=== PATIENT | male | born 1950 | race Caucasian/White ===

== ENCOUNTER → 2024-09-29 | Outpatient (CLI) | payer MEDICARE, MEDICAID, SELFPAY ==
[2024-09-29 10:19] LABS: Basophils # (Auto) 0.1 Thou/mm3 (0.0-0.2); Basophils % (Auto) 1 % (0-2.5); Eosinophils # (Auto) 0.5 Thou/mm3 (0.0-0.5); Eosinophils % (Auto) 7 % (0-10); Hematocrit 39.9 % (41.0-53.0); Hemoglobin 12.4 g/dL (13.5-16.0); Immature Granulocytes % (Auto) 0 % (0-0); Immature Granulocytes Auto 0.01 Thou/mm3 (0.00-0.00); Lymphocytes # (Auto) 1.8 Thou/mm3 (1.0-4.8); Lymphocytes % (Auto) 24 % (10-50); Mean Corpuscular HGB Conc 31.1 g/dl (31.0-37.0); Mean Corpuscular Hemoglobin 27.3 pg (25.0-35.0); Mean Corpuscular Volume 88 fL (80-100); Monocytes # (Auto) 0.7 Thou/mm3 (0.0-0.8); Monocytes % (Auto) 10 % (0-12); Neutrophils # (Auto) 4.2 Thou/mm3 (1.8-7.7); Neutrophils % (Auto) 58 % (37-80); Nucleated Red Blood Cell % 0 /100 WBC (0); Platelet Count 261 Thou/mm3 (140-440); RDW Standard Deviation 58.4 fL (35.1-43.9); Red Blood Count 4.54 Miln/mm3 (4.50-5.90); White Blood Count 7.3 Thou/mm3 (3.8-10.6)
[2024-09-29 10:36] LABS: Alanine Aminotransferase 48 U/L (10-49); Albumin, Serum 3.7 gm/dL (3.4-4.8); Alkaline Phosphatase 278 U/L (46-116); Anion Gap 9 (7-16); Aspartate Amino Transferase 29 U/L (0-34); BUN/Creatinine Ratio 9 Ratio (12-20); Bilirubin,Direct 0.2 mg/dL (0.0-0.3); Bilirubin,Total 0.5 mg/dL (0.3-1.2); Blood Urea Nitrogen 51 mg/dL (9-23); Calcium 9.4 mg/dL (8.3-10.6); Carbon Dioxide 31.1 mMol/L (20.0-31.0); Cardiac Risk Estimate 2.6 RATIO (4.0-6.7); Chloride 90 mMol/L (98-107); Cholesterol 114 mg/dL (132-200); Glucose 114 mg/dL (74-106); HDL Cholesterol 44 mg/dL (40-60); LDL Cholesterol,Calculated 56 mg/dL (0-130); Osmolality,Calculated 275 (275-295); Phosphorous 3.9 mg/dL (2.4-5.1); Potassium 4.2 mMol/L (3.4-5.1); Sodium 130 mMol/L (136-145); Total Protein 8.8 gm/dL (5.7-8.2); Triglycerides 69 mg/dL (30-150); eGFR 9 See Note
[2024-09-29 11:54] LABS: B-Type Natriuretic Peptide 1108 pg/mL (0-100)
[2024-10-05 06:51] LABS: Direct LDL* 49 mg/dL (<100)
== END | disposition home or self-care (01) ==
PROVIDERS: PCP Physician Assistant; Referring Provider Physician Assistant; Visit Provider Internal Medicine Cardiovascular Disease
DX: E78.5 Hyperlipidemia, unspecified (principal); I11.0 Hypertensive heart disease with heart failure; I50.9 Heart failure, unspecified
CPT/HCPCS: 36415; 80048; 80061; 80076; 83721; 83880; 84100; 85025

== ENCOUNTER → 2024-09-30 | Outpatient (CLI) | payer MEDICARE, MEDICAID, SELFPAY ==
--- NOTE | 2024-09-30 15:43 | XR_ITS ---
Examination: PA lateral chest 2 views TECHNIQUE: Upright PA lateral chest 2 views Exam date and time: September 30, 2024 1613 hours Comparison September 05, 2021 INDICATIONS: Coughing shortness of breath beginning 3 weeks ago. FINDINGS: Mild prominence left ventricle CABG Unipolar ventricular lead satisfactory position Mild to moderate vascular congestion Diffuse opacity left lung consistent with pneumonia and layering left pleural fluid CABG IMPRESSION: Diffuse opacity left lung consistent with pneumonia and significant layered left pleural fluid
== END | disposition home or self-care (01) ==
PROVIDERS: PCP Internal Medicine Cardiovascular Disease; Referring Provider Physician Assistant; Visit Provider Physician Assistant
DX: R91.8 Other nonspecific abnormal finding of lung field (principal)
CPT/HCPCS: 71046

== ENCOUNTER 2024-11-06 17:48 | Emergency (ER) | payer MEDICARE, MEDICAID, SELFPAY ==
[2024-11-06 17:50] VITALS: BP 170/73; PULSE 73; RESP 19; TEMP 37.1; O2SAT 97
--- NOTE | 2024-11-06 18:10 | PC.NURSE ---
PER DAUGHTER AT BEDSIDE PT WENT FOR DIALYSIS THIS MORNING, CAME HOME, FISTULA WAS BLEEDING, PT WENT BACK TO DIALYSIS TO GET BLEEDING UNDER CONTROL, THEN WENT BACK HOME. ST HOME PT BEGAN BLEEDING AGAIN SO DAUGHTER BROUGHT HIM IN TO ED. DAUGHTER STATES LAST TIME THIS HAPPENED, PT ENDED UP NEEDING 3 BAGS OF BLOOD. CURRENTLY BLEEDING IS CONTROLLED WITH A SINGLE BAND-ADIE. VSS ON TELE, DENIES ANY PAIN OR DISCOMFORT, JUST SOME WEAKNESS. DAUGHTER REMAINS AT BEDSIDE ATTENTIVE TO PT, CALL MANNING IN REACH, AWAITING PROVIDER ASSESSMENT.
--- NOTE | 2024-11-06 18:32 | EDNOTE_ITS ---
ED Extremity Problem RME/HPI General Chief complaint: Extremity Problem,Nontraumatic Stated complaint: FISTULA BLEEDING LEFT ARM Time Seen by Provider: 11/06/24 18:25 Arrival date/time: 11/06/24 17:48 RME / HPI RME / HPI Narrative: Dr. Grace?s Main ED Evaluation: 73yo male accompanied by his daughter presents to the ED for a chief complaint of bleeding from his fistula site. Daughter states the patient had dialysis this morning, reporting he started bleeding from his fistula site after. She states the bleeding stopped, but restarted again tonight, so she brought him in for evaluation. She states this usually happens after the patient has dialysis. Patient denies any dizziness, lightheadedness or any other associated symptoms. Patient has dialysis M/W/F, and on a 4th day as needed. [employer] is Dr. [place]. He is not on any blood thinners. His last blood transfusion was in July of 2024 per the daughter. Related Data Home Medications ?Medication ?Instructions ?Recorded ?Confirmed atorvastatin 20 mg tablet 40 mg PO QDAY 12/06/17 11/08/23 amiodarone 200 mg tablet 200 mg PO QDAY 04/11/21 11/08/23 carvedilol 3.125 mg tablet 3.125 mg PO BID 04/11/21 11/08/23 furosemide 40 mg tablet 40 mg PO BID 04/11/21 11/08/23 ascorbic acid (vitamin C) 250 mg 250 mg PO BID 10/08/22 11/08/23 tablet megestrol 40 mg tablet 40 mg PO BID 10/08/22 11/08/23 insulin glargine 100 unit/mL (3 10 unit subcut QDAY 04/03/23 11/08/23 mL) subcutaneous pen (Basaglar KwikPen U-100 Insulin) vitamin B complex-vitamin C-folic 1 tab PO QDAY 04/03/23 11/08/23 acid 0.8 mg tablet (Lisette-Juventino) magnesium oxide 400 mg PO QDAY 10/17/23 11/08/23 tamsulosin 0.4 mg capsule 0.4 mg PO QHS 11/08/23 11/08/23 Allergies Allergy/AdvReac Type Severity Reaction Status Date / Time adhesive tape Allergy Severe Blister Verified 11/06/24 17:52 Review of Systems Review of Systems Systems Reviewed: All systems reviewed, normal except as documented Narrative Review of Systems: Gen: No fever, no chills, no weight loss, + bleeding at fistula site EYES: No discharge, no visual changes, no pain HEENT: No ear pain, no congestion, no sore throat PULM: No shortness of breath, no cough, no congestion CV: No chest pain, no dyspnea on exertion, no palpitations GI: No nausea, no vomiting, no diarrhea, no pain, no constipation : No frequency, no urgency, no dysuria Musc/skel: No joint pain, no back pain Skin: No rash. Warm and dry. Psyc: No hallucinations, no depression Heme/Lymph: No easy bleeding or bruising tendencies Neuro: No weakness, no headache Past Medical History Past Medical History NEUROLOGIC: Negative Neurological Disorders, Cerebrovascular Accident, Transient Ischemic Attacks (TIA), Dementia, Alzheimer's Disease, Parkinson's Disease, Brain Tumor, Meningitis, Seizures, Epilepsy, Multiple Sclerosis, Cerebral Palsy, Amyotrophic Lateral Sclerosis (ALS/Danielle Gehrig's), Guillain-Lovilia Syndrome, Spina Bifida, Paralysis, Peripheral Neuropathy, Amaya's Palsy, Subdural Hematoma, Migraine, Head Trauma, Spinal Cord Injury or Traumatic Brain Injury CARDIAC: Positive Cardiac Disorders (IA,quadruple bypass and pacemaker, valve re pair.), Myocardial Infarction, Cardiac Arrhythmia, Angina, Coronary Artery Disease, Hypercholesterolemia, Valvular Heart Disease, Edema and Hypertension; Negative Atrial Fibrillation, Heart Murmur, Atherosclerotic Heart Disease, Peripheral Vascular Disease, Aneurysm, Congestive Heart Failure, Congenital Heart Disease, Rheumatic Fever, Cardiomyopathy, Pericarditis, Cellulitis, Deep Vein Thrombosis or Varicose Veins RESPIRATORY: Negative Chronic Obstructive Pulmonary Disease (COPD), Asthma, Bronchitis, Emphysema, Pneumonia, Pulmonary Fibrosis, Cystic Fibrosis, Tuberculosis, Pulmonary Embolism, Pulmonary Edema or Sleep Apnea GASTROINTESTINAL: Positive Gastrointestinal Disorders and Gastrointestinal Bleed (UNKNOWN SOURCE); Negative Hepatitis, Cirrhosis, Pancreatitis, Celiac Disease, Gall Bladder Disease, Esophageal Varices, Mcgarry's Esophagus, Colitis, Ulcerative Colitis, Diverticulitis, Diverticulosis, Ulcer, Colorectal Cancer, Irritable Bowel, Crohn's Disease, Obstructive Bowel, Hiatal Hernia, Hemorrhoids, Gastroesophageal Reflux Disease or Obesity GENITOURINARY: Positive Genitourinary Disorders, Renal Disease (renal failure), Dialysis and Benign Prostatic Hyperplasia; Negative Polycystic Kidney Disease, Neurogenic Bladder, Inguinal Hernia or Prostate Cancer REPRODUCTIVE: Negative Fibroids or Testicular Cancer MUSCULOSKELETAL: Negative Musculoskeletal Disorders, Muscular Dystrophy, Myasthenia Gravis, Marfan's Syndrome, Bone Cancer, Arthritis, Rheumatoid Arthritis, Osteoporosis, Degenerative Disk Disease, Gout, Scoliosis, Carpal Tunnel Syndrome, Fibromyalgia, Fractures, Degenerative Joint Disease, Osteomyelitis or Poliovirus ENT: Positive Cataracts; Negative Glaucoma, Blind, Retinal Detachment, Macular Degeneration, Ear Infection, Deafness, Head Trauma or Eye Prosthesis ENDOCRINE: Positive Endocrine Disorders (PT HAS HELING AV FISTULA FOR HD ON LEFT ARM AND PERMCATH.) and Diabetes Mellitus Type 2; Negative Diabetes Mellitus Type 1, Hypoglycemia, Triny's Syndrome, Naranjito's Disease, Hyperthyroidism, Hypothyroidism, Parathyroid Disease, Pituitary Disease, Systemic Lupus Erythematosus, Syndrome of Inappropriate Antidiuretic Hormone (SIADH), Adrenal Disease or Graves' Disease HEMATOLOGIC: Positive Blood Disorders and Anemia; Negative Leukemia, Hemophilia, Thalassemia, Sickle Cell Disease or Clotting Problems PSYCHO/SOCIAL: Positive Depression; Negative Psychiatric Problems, Schizophrenia, Recreational Drug Use, Bipolar Disorder, Anxiety, Behavior Problems, Self-Mutilation, Attention Deficit Disorder, Attention Deficit Hyperactivity Disorder, Depression, Post Traumatic Stress Disorder or Eating Disorder OTHER HISTORY: Positive Hospitalization, Shingles and Blood Transfusions ([id number] FOR 6 WEEKS.); Negative Autoimmune Disease, Down Syndrome, Autism, Developmental Delay, Falls, Blood Transfusion Reaction, Anesthesia Reactions, Organ Transplant, Chemotherapy, Radiation Therapy, Hyperbaric Therapy, MRSA, VRSA, Vancomycin- Resistant Enterococci, Human Immunodeficiency Virus (HIV), Chicken Pox, Measles, Mumps, Rubella (Setswana Measles), Pertussis, Clostridium Difficile, Cancer, Colorectal Cancer, Lung Cancer, Prostate Cancer or Testicular Cancer Family History FAMILY HISTORY: Positive Family Cardiac Disorders and Family Cancer; Negative Family Psychiatric Problems, Family Respiratory Disorders, Family Niesha rointestinal Problems, Family Surgery or Family Anesthesia Reaction Surgical History SURGICAL: Positive Open Heart Surgery, Coronary Artery Bypass Graft, Valve Replacement, Cardiac Catheterization, Pacemaker, Angiogram, Auto Implanted Cardiovert Defib, Ear Surgery and Eye Surgery (CATARACTS BILATERAL REMOVED); Negative Cardiac Surgery, Vascular Surgery, Coronary Stent, Carotid Endarterectomy, Endocrine Surgery, Thyroidectomy, Tympanostomy Tube, Nose Surgery, Oral Surgery, Tonsillectomy, Adenoidectomy, Cochlear Implant, Corneal Transplant, Throat Surgery, Abdominal Surgery, Tracheostomy, Gastric Bypass Surgery, Gastrostomy, Bowel Surgery, Nephrectomy, Transurethral Resection, Joint Replacement, Amputation, Open Reduction Internal Fixation, Arthroscopy, Neurologic Surgery, Brain Shunt, Vasectomy or Organ Transplant Social History SMOKING STATUS: Never smoker ED Exam Narrative Physical exam: GENERAL APPEARANCE: AxOx4, generally well-appearing, no acute distress. HEENT: NC, AT. MMM. EOMI, clear conjunctiva, oropharynx clear. NECK: Supple without lymphadenopathy. No stiffness or restricted ROM. HEART: Normal rate and regular rhythm, normal S1/S1, no m/r/g LUNGS: CTAB, moving air well. No crackles or wheezes are heard. ABDOMEN: Soft, nontender, nondistended with good bowel sounds heard. BACK: No midline C/T/L spine pain or deformity, No CVAT, no obvious deformity. EXTREMITIES: Without cyanosis, clubbing or edema. Has dry blood over the left up per arm with bandages in place, no active bleeding. MUSCULOSKELETAL: FROM of all major joints, no chest tenderness NEUROLOGICAL: Grossly nonfocal. Alert and oriented, moving all 4 extremities. CN not formally tested but appear grossly intact. Skin: Warm and dry without any rash. Course Course Course Narrative: 2117: Discussed results with the patient and his daughter at bedside. Patient is stable to be discharged home. They are agreeable to continue on with the patient's regular dialysis schedule. Quality Measures none Orders Category Date Time Status CBC Stat Lab 11/06/24 18:45 Completed Hemoglobin and Hematocrit Stat Lab 11/06/24 20:29 Completed Vital Signs Vital signs: Vital Signs Temperature 98.8 F 11/06/24 17:50 Pulse Rate 73 11/06/24 17:50 Respiratory Rate 19 11/06/24 17:50 Blood Pressure 170/73 H 11/06/24 17:50 Pulse Oximetry (%) 97 11/06/24 17:50 Oxygen Delivery Method Room Air 11/06/24 17:50 Pulse ox is 97% on room air, which is normal according to my interpretation. Extremity Problem MDM Narrative MDM Narrative:: Scribe Attestation: 11/06/24 Diana Lainez am scribing for and in the presence of Dr. Grace. 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 Medications / Prescriptions Medications or Prescriptions considered but not ordered:: none Medication administrations:: none Consultations Consultation(s) initiated? (list below): No Diagnosis Extremity Problem Differential Diagnosis: other (chronic anemia, anemia with blood loss, ESRD, fistula malfunction) Most likely diagnosis given after review of the tests above:: chronic anemia, AV fistula malfunction Admission Indicated Admission indicated?: not indicated Explain why admission is indicated or not indicated:: Admission criteria not met. HnH remained stable. Admission Request Was there a request for admission?: No Disposition Plan Disposition Plan: Discharge Discharge Attestation Discharge Attestation: The patient and all family members were given an opportunity to ask questions and understood the discharge instructions. Discharge instructions specifically effects, indications for sooner follow up or return to the emergency department, and the expected course of current diagnosis. Patient condition: Stable Discharge Plan Plan Patient Disposition: HOME (Self Care) Prescriptions/Referrals Prescriptions/Med Rec: No Action atorvastatin 20 mg tablet 40 mg PO QDAY carvedilol 3.125 mg tablet 3.125 mg PO BID Rx Instructions: must administer with a meal/food amiodarone 200 mg tablet 200 mg PO QDAY furosemide 40 mg tablet 40 mg PO BID ascorbic acid (vitamin C) 250 mg tablet 250 mg PO BID megestrol 40 mg tablet 40 mg PO BID tamsulosin 0.4 mg capsule 0.4 mg PO QHS Lisette-Juventino 0.8 mg Tablet 1 tab PO QDAY insulin glargine [Basaglar KwikPen U-100 Insulin] 100 unit/mL (3 mL) Insulin Pen 10 unit SUBCUT QDAY magnesium oxide 400 mg magnesium Capsule 400 mg PO QDAY Referrals: Kaylan Peck PA-C [Primary Care Provider] - In 1 week Problem List Clinical Impression: Dialysis AV fistula malfunction, Anemia in chronic kidney disease (CKD) Patient/Caregiver Discharge Instructions Education Materials: ED Anemia Type Not Specified, ED Chronic Kidney Disease (CKD) Additional Instructions: You can follow-up with your normal dialysis schedule. Feel free to return to ER sooner if symptoms worsen or for any new or concerning issues. Print Language: Korean Stand Alone Forms: [facility] Info., Patient Portal Info Letter
[2024-11-06 18:53] LABS: Basophils # (Auto) 0.1 Thou/mm3 (0.0-0.2); Basophils % (Auto) 1 % (0-2.5); Eosinophils # (Auto) 0.4 Thou/mm3 (0.0-0.5); Eosinophils % (Auto) 5 % (0-10); Hematocrit 33.3 % (41.0-53.0); Hemoglobin 10.5 g/dL (13.5-16.0); Immature Granulocytes % (Auto) 0 % (0-0); Immature Granulocytes Auto 0.02 Thou/mm3 (0.00-0.00); Lymphocytes # (Auto) 1.7 Thou/mm3 (1.0-4.8); Lymphocytes % (Auto) 21 % (10-50); Mean Corpuscular HGB Conc 31.5 g/dl (31.0-37.0); Mean Corpuscular Hemoglobin 28.5 pg (25.0-35.0); Mean Corpuscular Volume 90 fL (80-100); Monocytes % (Auto) 13 % (0-12); Neutrophils # (Auto) 4.9 Thou/mm3 (1.8-7.7); Neutrophils % (Auto) 61 % (37-80); Nucleated Red Blood Cell % 0 /100 WBC (0); Platelet Count 299 Thou/mm3 (140-440); RDW Standard Deviation 61.7 fL (35.1-43.9); Red Blood Count 3.69 Miln/mm3 (4.50-5.90)
[2024-11-06 19:25] VITALS: BP 137/77; PULSE 70; RESP 18; TEMP 36.8; O2SAT 95
[2024-11-06 21:01] LABS: Hematocrit 33.9 % (41.0-53.0); Hemoglobin 10.8 g/dL (13.5-16.0)
== END 2024-11-06 21:33 | disposition home or self-care (01) ==
PROVIDERS: Emergency Provider Emergency Medicine; PCP Specialist
DX: T82.838A Hemorrhage due to vascular prosthetic devices, implants and grafts, initial encounter (principal); I13.2 Hypertensive heart and chronic kidney disease with heart failure and with stage 5 chronic kidney disease, or end stage renal disease; N18.6 End stage renal disease; E11.22 Type 2 diabetes mellitus with diabetic chronic kidney disease; D63.1 Anemia in chronic kidney disease; Y83.2 Surgical operation with anastomosis, bypass or graft as the cause of abnormal reaction of the patient, or of later complication, without mention of misadventure at the time of the procedure; Z79.4 Long term (current) use of insulin
CPT/HCPCS: 36415; 85014; 85018; 85025; 99283

== ENCOUNTER → 2024-11-09 | Outpatient (BNVA) | payer MEDICARE, MEDICAID, SELFPAY | END | disposition home or self-care (01) | PROVIDERS: PCP Physician Assistant; Referring Provider Physician Assistant; Visit Provider Urology | DX: N40.0 Benign prostatic hyperplasia without lower urinary tract symptoms (principal); I12.0 Hypertensive chronic kidney disease with stage 5 chronic kidney disease or end stage renal disease; E11.22 Type 2 diabetes mellitus with diabetic chronic kidney disease; N18.6 End stage renal disease; I25.10 Atherosclerotic heart disease of native coronary artery without angina pectoris | CPT/HCPCS: 81003; 99212; G0463 ==

== ENCOUNTER → 2025-01-15 | Outpatient (CLI) | payer MEDICARE, MEDICAID, SELFPAY ==
[2025-01-15 15:24] LABS: Basophils # (Auto) 0.1 Thou/mm3 (0.0-0.2); Basophils % (Auto) 1 % (0-2.5); Eosinophils # (Auto) 0.2 Thou/mm3 (0.0-0.5); Eosinophils % (Auto) 3 % (0-10); Hematocrit 34.8 % (41.0-53.0); Hemoglobin 10.7 g/dL (13.5-16.0); Immature Granulocytes % (Auto) 0 % (0-0); Immature Granulocytes Auto 0.02 Thou/mm3 (0.00-0.00); Lymphocytes # (Auto) 1.5 Thou/mm3 (1.0-4.8); Lymphocytes % (Auto) 21 % (10-50); Mean Corpuscular HGB Conc 30.7 g/dl (31.0-37.0); Mean Corpuscular Hemoglobin 29.1 pg (25.0-35.0); Mean Corpuscular Volume 95 fL (80-100); Monocytes # (Auto) 0.8 Thou/mm3 (0.0-0.8); Monocytes % (Auto) 12 % (0-12); Neutrophils # (Auto) 4.5 Thou/mm3 (1.8-7.7); Neutrophils % (Auto) 64 % (37-80); Nucleated Red Blood Cell % 0 /100 WBC (0); Platelet Count 381 Thou/mm3 (140-440); RDW Standard Deviation 60.4 fL (35.1-43.9); Red Blood Count 3.68 Miln/mm3 (4.50-5.90); White Blood Count 7.1 Thou/mm3 (3.8-10.6)
[2025-01-15 15:29] LABS: INR 1.1 (0.9-1.3); Partial Thromboplastin Time 33.4 Seconds (22.0-36.0); Prothrombin Time 11.9 Seconds (9.0-12.2)
== END | disposition home or self-care (01) ==
PROVIDERS: PCP Physician Assistant; Referring Provider Physician Assistant; Visit Provider Physician Assistant
DX: J90 Pleural effusion, not elsewhere classified (principal)
CPT/HCPCS: 36415; 85025; 85610; 85730

== ENCOUNTER → 2025-01-19 | Outpatient (CLI) | payer MEDICARE, MEDICAID, SELFPAY ==
--- NOTE | 2025-01-19 11:00 | XR_ITS ---
Examination: Ultrasound right hemithorax Ultrasound left hemithorax Exam date and time: 16/03/2025 1145 hours INDICATIONS: Difficulty breathing this week TECHNIQUE: Grayscale sonographic images right and left hemithoraces FINDINGS: Minimal bilateral pleural fluid IMPRESSION: Minimal bilateral pleural fluid
== END | disposition home or self-care (01) ==
PROVIDERS: PCP Family Medicine; Referring Provider Family Medicine; Visit Provider Family Medicine
DX: Z53.8 Procedure and treatment not carried out for other reasons (principal)
CPT/HCPCS: 76999

== ENCOUNTER → 2025-02-18 | Outpatient (CLI) | payer MEDICARE, MEDICAID, SELFPAY ==
[2025-02-18 09:35] LABS: Basophils # (Auto) 0.1 Thou/mm3 (0.0-0.2); Basophils % (Auto) 1 % (0-2.5); Eosinophils # (Auto) 0.7 Thou/mm3 (0.0-0.5); Eosinophils % (Auto) 6 % (0-10); Hematocrit 35.9 % (41.0-53.0); Hemoglobin 11.1 g/dL (13.5-16.0); Immature Granulocytes % (Auto) 0 % (0-0); Immature Granulocytes Auto 0.04 Thou/mm3 (0.00-0.00); Lymphocytes # (Auto) 2.5 Thou/mm3 (1.0-4.8); Lymphocytes % (Auto) 22 % (10-50); Mean Corpuscular HGB Conc 30.9 g/dl (31.0-37.0); Mean Corpuscular Hemoglobin 29.1 pg (25.0-35.0); Mean Corpuscular Volume 94 fL (80-100); Monocytes # (Auto) 1.1 Thou/mm3 (0.0-0.8); Monocytes % (Auto) 9 % (0-12); Neutrophils # (Auto) 7.1 Thou/mm3 (1.8-7.7); Neutrophils % (Auto) 62 % (37-80); Nucleated Red Blood Cell % 0 /100 WBC (0); Platelet Count 378 Thou/mm3 (140-440); RDW Standard Deviation 55.6 fL (35.1-43.9); Red Blood Count 3.81 Miln/mm3 (4.50-5.90); White Blood Count 11.5 Thou/mm3 (3.8-10.6)
[2025-02-18 11:08] LABS: Alanine Aminotransferase 35 U/L (10-49); Albumin, Serum 3.7 gm/dL (3.4-4.8); Alkaline Phosphatase 191 U/L (46-116); Anion Gap 8 (7-16); Aspartate Amino Transferase 27 U/L (0-34); BUN/Creatinine Ratio 9 Ratio (12-20); Bilirubin,Direct 0.2 mg/dL (0.0-0.3); Bilirubin,Total 0.3 mg/dL (0.3-1.2); Blood Urea Nitrogen 44 mg/dL (9-23); Calcium 9.7 mg/dL (8.3-10.6); Carbon Dioxide 31.9 mMol/L (20.0-31.0); Cardiac Risk Estimate 2.2 RATIO (4.0-6.7); Chloride 93 mMol/L (98-107); Cholesterol 111 mg/dL (132-200); Creatinine (Component) 5.1 mg/dL (0.6-1.3); Glucose 91 mg/dL (74-106); HDL Cholesterol 50 mg/dL (40-60); LDL Cholesterol,Calculated 50 mg/dL (0-130); Osmolality,Calculated 277 (275-295); Potassium 4.5 mMol/L (3.4-5.1); Sodium 133 mMol/L (136-145); Total Protein 9.3 gm/dL (5.7-8.2); Triglycerides 54 mg/dL (30-150); eGFR 11 See Note
[2025-02-18 11:11] LABS: B-Type Natriuretic Peptide 942 pg/mL (0-100)
[2025-02-26 06:48] LABS: Direct LDL* 45 mg/dL (<100)
== END | disposition home or self-care (01) ==
LOC: COPL 08:27
PROVIDERS: PCP Physician Assistant; Referring Provider Internal Medicine Cardiovascular Disease; Visit Provider Internal Medicine Cardiovascular Disease
DX: E78.49 Other hyperlipidemia (principal); I10 Essential (primary) hypertension
CPT/HCPCS: 36415; 80048; 80061; 80076; 83721; 83880; 84100; 85025

== ENCOUNTER 2025-04-08 10:45 | Emergency (ER) | payer MEDICARE, MEDICAID, SELFPAY ==
[2025-04-08 10:49] VITALS: PULSE 83; RESP 18; O2SAT 97; BMI 22.1
[2025-04-08 10:55] VITALS: BP 164/82; PULSE 79; RESP 19; TEMP 37.4; O2SAT 95
--- NOTE | 2025-04-08 11:04 | PD.EDADULT ---
ED General RME/HPI General Chief complaint: General Adult/Misc Complain Stated complaint: FISTULA BLEED Time Seen by Provider: 04/08/25 10:56 Arrival date/time: 04/08/25 10:45 Limitations: no limitations RME / HPI RME / HPI narrative: Patient was brought in by ambulance from dialysis center for bleeding from his fistula. Pressure dressing was applied by fire rescue and upon arrival patient does not have any active bleeding. The area of bleeding has a small skin tag and after examining the area and nonadhering dressing was applied by the nurse, followed by dry dressing and was wrapped with Yue. Patient was observed for extended time to ensure stability. He was discharged home in stable condition. Related Data Home Medications ?Medication ?Instructions ?Recorded ?Confirmed amiodarone 200 mg tablet 200 mg PO QDAY 04/11/21 11/09/24 carvedilol 3.125 mg tablet 3.125 mg PO BID 04/11/21 11/09/24 furosemide 40 mg tablet 40 mg PO BID 04/11/21 11/09/24 ascorbic acid (vitamin C) 250 mg 250 mg PO BID 10/08/22 11/09/24 tablet megestrol 40 mg tablet 40 mg PO BID 10/08/22 11/09/24 insulin glargine 100 unit/mL (3 10 unit subcut QDAY 04/03/23 11/09/24 mL) subcutaneous pen (Basaglar KwikPen U-100 Insulin) vitamin B complex-vitamin C-folic 1 tab PO QDAY 04/03/23 11/09/24 acid 0.8 mg tablet (Lisette-Juventino) magnesium oxide 400 mg PO QDAY 10/17/23 11/09/24 tamsulosin 0.4 mg capsule 0.4 mg PO QHS 11/08/23 11/09/24 atorvastatin 40 mg tablet 40 mg PO QDAY 11/09/24 11/09/24 Allergies Allergy/AdvReac Type Severity Reaction Status Date / Time adhesive tape Allergy Severe Blister Verified 04/08/25 10:58 Review of Systems Review of Systems Systems Reviewed: All systems reviewed, normal except as documented ED Exam General Limitations: Present no limitations General appearance: Present alert Head Head exam: Present atraumatic ENT ENT exam: Present normal exam Neck Neck exam: Present normal inspection Respiratory Respiratory exam: Present normal lung sounds bilaterally; Absent respiratory distress Cardiovascular Cardiovascular exam: Present regular rate and normal rhythm Abdominal Exam Abdominal exam: Present soft; Absent distention or tenderness Extremities Exam Extremities exam: Present normal inspection and other (See HPI. Fistula is in the left upper extremity) Psychiatric Psychiatric exam: Present normal affect and normal mood Skin Skin exam: Present warm and dry Course Quality Measures none Vital Signs Vital signs: Vital Signs Temperature 99.3 F 04/08/25 10:55 Pulse Rate 79 04/08/25 10:55 Respiratory Rate 19 04/08/25 10:55 Blood Pressure 164/82 H 04/08/25 10:55 Pulse Oximetry (%) 95 04/08/25 10:55 Oxygen Delivery Method Room Air 04/08/25 10:55 Discharge Plan Plan Patient Disposition: HOME (Self Care) Patient condition on transfer: Stable Prescriptions/Referrals Prescriptions/Med Rec: No Action carvedilol 3.125 mg tablet 3.125 mg PO BID Rx Instructions: must administer with a meal/food amiodarone 200 mg tablet 200 mg PO QDAY furosemide 40 mg tablet 40 mg PO BID ascorbic acid (vitamin C) 250 mg tablet 250 mg PO BID megestrol 40 mg tablet 40 mg PO BID tamsulosin 0.4 mg capsule 0.4 mg PO QHS atorvastatin 40 mg tablet 40 mg PO QDAY Lisette-Juventino 0.8 mg Tablet 1 tab PO QDAY insulin glargine [Basaglar KwikPen U-100 Insulin] 100 unit/mL (3 mL) Insulin Pen 10 unit SUBCUT QDAY magnesium oxide 400 mg magnesium Capsule 400 mg PO QDAY Problem List Clinical Impression: AVF (arteriovenous fistula) Patient/Caregiver Discharge Instructions Discharge Activity: activity as tolerated Education Materials: Arteriovenous AV Fistula for ... Print Language: Turkmen Stand Alone Forms: [facility] Info., Patient Portal Info Letter MDM Narrative Sign out note: Patient's fistula hemorrhage was controlled by pressure application that was implemented by fire department. Medical Records Reviewed [facility] Labs/Rad/Tests considered, not Ordered None Dispositon Disposition: Discharge Home
[2025-04-08 12:56] VITALS: BP 157/83; PULSE 70; RESP 13; O2SAT 98
== END 2025-04-08 12:59 | disposition home or self-care (01) ==
LOC: SERX 11:27
PROVIDERS: Emergency Provider Emergency Medicine; PCP Physician Assistant
DX: I77.0 Arteriovenous fistula, acquired (principal)
CPT/HCPCS: 99281

== ENCOUNTER → 2025-07-08 | Outpatient (CLI) | payer MEDICARE, MEDICAID, SELFPAY ==
[2025-07-08 08:31] LABS: Basophils # (Auto) 0.0 Thou/mm3 (0.0-0.2); Basophils % (Auto) 1 % (0-2.5); Eosinophils # (Auto) 0.9 Thou/mm3 (0.0-0.5); Eosinophils % (Auto) 11 % (0-10); Hematocrit 37.7 % (41.0-53.0); Hemoglobin 11.7 g/dL (13.5-16.0); Immature Granulocytes Auto 0.01 Thou/mm3 (0.00-0.00); Lymphocytes # (Auto) 1.9 Thou/mm3 (1.0-4.8); Lymphocytes % (Auto) 23 % (10-50); Mean Corpuscular HGB Conc 31.0 g/dl (31.0-37.0); Mean Corpuscular Hemoglobin 27.6 pg (25.0-35.0); Mean Corpuscular Volume 89 fL (80-100); Monocytes # (Auto) 0.8 Thou/mm3 (0.0-0.8); Monocytes % (Auto) 10 % (0-12); Neutrophils # (Auto) 4.5 Thou/mm3 (1.8-7.7); Neutrophils % (Auto) 55 % (37-80); Nucleated Red Blood Cell # 0.00 Thou/mm3 (0.00-0.00); Nucleated Red Blood Cell % 0 /100 WBC (0); Platelet Count 286 Thou/mm3 (140-440); RDW Standard Deviation 54.3 fL (35.1-43.9); Red Blood Count 4.24 Miln/mm3 (4.50-5.90); White Blood Count 8.1 Thou/mm3 (3.8-10.6)
[2025-07-08 08:53] LABS: B-Type Natriuretic Peptide 397 pg/mL (0-100)
[2025-07-08 08:59] LABS: Alanine Aminotransferase 50 U/L (10-49); Albumin, Serum 3.9 gm/dL (3.4-4.8); Alkaline Phosphatase 214 U/L (46-116); Anion Gap 13 (7-16); Aspartate Amino Transferase 27 U/L (0-34); BUN/Creatinine Ratio 11 Ratio (12-20); Bilirubin,Direct 0.1 mg/dL (0.0-0.3); Bilirubin,Total 0.3 mg/dL (0.3-1.2); Blood Urea Nitrogen 54 mg/dL (9-23); Calcium 10.3 mg/dL (8.3-10.6); Carbon Dioxide 31.5 mMol/L (20.0-31.0); Cardiac Risk Estimate 2.1 RATIO (4.0-6.7); Chloride 91 mMol/L (98-107); Cholesterol 97 mg/dL (132-200); Creatinine (Component) 5.1 mg/dL (0.6-1.3); Glucose 109 mg/dL (74-106); HDL Cholesterol 46 mg/dL (40-60); LDL Cholesterol,Calculated 46 mg/dL (0-130); Osmolality,Calculated 285 (275-295); Phosphorous 4.3 mg/dL (2.4-5.1); Potassium 4.2 mMol/L (3.4-5.1); Sodium 135 mMol/L (136-145); Total Protein 9.1 gm/dL (5.7-8.2); Triglycerides 23 mg/dL (30-150); eGFR 11 See Note
[2025-07-12 06:33] LABS: Direct LDL* 53 mg/dL (<100)
== END | disposition home or self-care (01) ==
PROVIDERS: PCP Physician Assistant; Referring Provider Internal Medicine Cardiovascular Disease; Visit Provider Internal Medicine Cardiovascular Disease
DX: E78.5 Hyperlipidemia, unspecified (principal); I10 Essential (primary) hypertension
CPT/HCPCS: 36415; 80048; 80061; 80076; 83721; 83880; 84100; 85025

== ENCOUNTER → 2025-08-27 | Outpatient (CLI) | payer MEDICARE, MEDICAID, SELFPAY ==
--- NOTE | 2025-08-27 10:30 | XR_ITS ---
Examination: CT chest, without intravenous contrast. Sagittal and coronal 2-D reconstructions. Exam date and time: August 27, 2025, 1031 hours, comparison February 27, 2024 INDICATIONS: Difficulty breathing this week and several months, history left lower fluid CTDI:vol (mGy) 13.1 DLP: (mGycm) 425 Technique: Multiple 3.0 mm axial sections of the chest to been obtained. Bone and lung density settings are obtained. Sagittal and coronal 2-D reconstructions have been obtained. Low dose protocols were performed. One or more of the following dose reduction techniques were used; automated exposure control, adjustment of the mA and/or KV according to patient size, use of iterative reconstruction technique. Findings: No thoracic aortic aneurysmal dilatation Pulmonary artery segments are not enlarged Moderate enlargement cardiac contour Loculated left hemithorax pleural fluid moderate to prominent Atelectasis and/or pneumonia in the left upper and left midlung Right lung clear Multiple enlarged lymph nodes in the left axilla with extensive edema No visualized liver splenic lesion No gallstones No pancreatic mass Prominent osteopenia IMPRESSION: Large loculated left pleural fluid Atelectasis versus pneumonia in the left upper and left midlung Multiple abnormal lymph nodes in the left axilla with edema, recommend ultrasound left axilla follow-up
== END | disposition home or self-care (01) ==
PROVIDERS: Referring Provider Internal Medicine; Visit Provider Internal Medicine
DX: R91.8 Other nonspecific abnormal finding of lung field (principal)
CPT/HCPCS: 71250